=== PATIENT | female | born 1975 | race Native Hawaiian/Other Pacific Islander ===

== ENCOUNTER 2022-11-04 19:57 | Emergency (ER) | payer OTHER ==
[~2022-11-04] VITALS: Ht 165.1 cm; Wt 108.9 kg
[2022-11-04 21:00] LABS: PLATELET COUNT 298 K/uL (152-353)
[2022-11-04 21:02] LABS: POTASSIUM 4.2 mmol/L (3.6-5.2)
[2022-11-05 03:50] VITALS: BP 110/76; TEMP 98.7
== END 2022-11-05 03:50 | disposition short-term general hospital (02) ==
LOC: ED 19:57
PROVIDERS: Emergency Medicine Emergency Medical Services
PROC: 30233N1 Transfusion of Nonautologous Red Blood Cells into Peripheral Vein, Percutaneous Approach (ICD-10-PCS; principal; 2022-11-04)
DX: I31.39 Other pericardial effusion (noninflammatory) (principal); D64.89 Other specified anemias
CPT/HCPCS: 36415; 36430; 80053; 82150; 83690; 84484; 85027; 85610; 86850; 86900; 86901; 86922; 93005; 96360; 99285; P9016; Q9963

== ENCOUNTER 2022-12-16 11:50 | Outpatient (CLI) | payer OTHER ==
[2022-12-16 12:17] LABS: PLATELET COUNT 254 K/uL (152-353)
[2022-12-16 12:28] LABS: POTASSIUM 4.1 mmol/L (3.6-5.2)
== END 2022-12-16 21:20 | disposition home or self-care (01) ==
LOC: LABW 11:50
PROVIDERS: ATTEND Thoracic Surgery (Cardiothoracic Vascular Surgery)
DX: N28.89 Other specified disorders of kidney and ureter (principal); R60.0 Localized edema; E87.8 Other disorders of electrolyte and fluid balance, not elsewhere classified; B99.9 Unspecified infectious disease; J90 Pleural effusion, not elsewhere classified
CPT/HCPCS: 36415; 80048; 85027

== ENCOUNTER 2023-02-11 11:20 | Outpatient (CLI) | payer OTHER | END 2023-02-11 19:06 | disposition home or self-care (01) | LOC: CT 11:20 | PROVIDERS: ATTEND Nurse Practitioner Acute Care | DX: E03.8 Other specified hypothyroidism (principal); R60.0 Localized edema | CPT/HCPCS: 36415; 82565; 84443; 84520; Q9963 ==

== ENCOUNTER 2023-02-25 13:10 | Outpatient (CLI) | payer OTHER | END 2023-02-25 20:36 | disposition home or self-care (01) | LOC: US 13:10 | PROVIDERS: ATTEND Nurse Practitioner Acute Care | DX: R60.0 Localized edema (principal) ==

== ENCOUNTER 2023-03-05 10:04 | Outpatient (CLI) | payer OTHER | END 2023-03-05 19:00 | disposition home or self-care (01) | LOC: MAMMO 10:04 | PROVIDERS: ATTEND Internal Medicine | DX: R92.2 Inconclusive mammogram (principal) ==

== ENCOUNTER 2023-03-06 11:17 | Emergency (ER) | payer OTHER ==
[~2023-03-06] VITALS: Ht 165.1 cm; Wt 103.4 kg
[2023-03-06 11:43] LABS: PLATELET COUNT 284 K/uL (152-353)
[2023-03-06 11:47] LABS: POTASSIUM 3.7 mmol/L (3.6-5.2)
[2023-03-06 13:15] VITALS: BP 124/74; TEMP 98.2
== END 2023-03-06 13:15 | disposition home or self-care (01) ==
LOC: ED 11:17
PROVIDERS: Family Medicine
DX: D50.9 Iron deficiency anemia, unspecified (principal); N92.0 Excessive and frequent menstruation with regular cycle; E03.9 Hypothyroidism, unspecified; I89.0 Lymphedema, not elsewhere classified
CPT/HCPCS: 36415; 80053; 85027; 99283

== ENCOUNTER 2023-06-17 12:43 | Outpatient (CLI) | payer OTHER | END 2023-06-17 19:05 | disposition home or self-care (01) | LOC: RAD 12:43 | PROVIDERS: ATTEND Nurse Practitioner Acute Care | DX: E03.8 Other specified hypothyroidism (principal); D50.8 Other iron deficiency anemias; I31.39 Other pericardial effusion (noninflammatory) | CPT/HCPCS: 36415; 80053; 80061; 83036; 84443; 85027 ==